=== PATIENT | female | born 1935 | race Caucasian/White ===

== ENCOUNTER → 2017-04-19 | Outpatient (CLI) | payer MEDICARE | END | disposition home or self-care (01) | LOC: LAB.O 09:36 | PROVIDERS: ATTEND Nurse Practitioner Family | DX: R82.99 Other abnormal findings in urine (principal); R60.9 Edema, unspecified ==

== ENCOUNTER 2017-05-22 16:43 | Observation (INO) | payer MEDICARE ==
[2017-05-22] MEDS ORDERED: NITROGLYCERIN 0.4 MG 25 EA TAB SL ONE ×2 (17:15→17:17)
[2017-05-22] MEDS ORDERED: SODIUM CHLORIDE 0.9% (FLUSH) 10 ML SYG IV PRN ×2 (17:17→19:47)
[2017-05-22] MEDS ORDERED: ASPIRIN TABLET 325 MG TAB PO ONE (17:17)
--- NOTE | 2017-05-22 17:17 | ED.PDOC ---
History of Present Illness - General Chief Complaint: Respiratory Problem Stated Complaint: sob Time Seen by Provider: 05/22/17 17:16 Source: patient Exam Limitations: no limitations - History of Present Illness Initial Comments: Keyonna Velasquez 82 y/o female stated that she was sob today with chest pressure while sitting down at home.EMS was Then called and noted her blood pressure was elevated was given NTG and Morphine sulfate iv.Presently another NTG was given here in er and stating feeling much better Timing/Duration: 1-3 hours Severity: moderate Activities at Onset: rest Possible Cause: no prior episodes Improving Factors: nothing Worsening Factors: nothing Respiratory Risk Factors: no cause identified Allergies/Adverse Reactions: Allergies NO KNOWN ALLERGY Allergy (Verified 12/26/15 14:51) Home Medications: Ambulatory Orders Lisinopril 10 mg PO DAILY 05/22/17 Review of Systems - Review of Systems Constitutional: States: no symptoms reported EENTM: States: no symptoms reported Respiratory: States: see HPI Cardiology: States: see HPI Gastrointestinal/Abdominal: States: no symptoms reported Genitourinary: States: no symptoms reported Skin: States: no symptoms reported Past Medical History (General) - Patient Medical History Hx Congestive Heart Failure: Yes - recently diagnosed Hx Hypertension: Yes - Vaccination History Hx Tetanus, Diphtheria Vaccination: No - Social History Hx Alcohol Use: No Hx Substance Use: No Family Medical History - Family History Mother Family History: Unknown Living Status: Hx Family;Other: parents natural causes -old age Physical Exam - Physical Exam General Appearance: Alert, Comfortable, No apparent distress Eyes, Ears, Nose, Throat Exam: PERRL/EOMI, normal ENT inspection Neck: non-tender, full range of motion Respiratory: chest non-tender, crackles - bases Cardiovascular/Chest: normal peripheral pulses, regular rate, rhythm, other - grade 3/6 systolic murmur apex Peripheral Pulses: radial,right: 1+, radial,left: 1+ Gastrointestinal/Abdominal: normal bowel sounds, non tender, soft, no organomegaly Extremity: normal range of motion, no calf tenderness, pedal edema - bilaterally Neurologic: no motor/sensory deficits, alert, normal mood/affect, oriented x 3 Skin Exam: normal color, warm/dry Lymphatic: no adenopathy Progress - Progress Progress: 05/22/17 18:00 Vital Signs - 8 hr 05/22/17 16:44 Temperature 98.5 F Pulse Rate [ 85 RIGHT BRACHIAL] Respiratory 18 Rate Blood Pressure 168/129 [RIGHT BRACHIAL ] O2 Sat by Pulse 96 Oximetry - Results/Orders Results/Orders: 05/22/17 17:17 IV Care:Saline Lock per Protoc QSHIFT Telemetry .ONCE Sodium Chloride 0.9% (Flush) [Saline Flush Syringe] 10 ml IV PRN PRN EKG Stat Pulse Ox Stat 05/22/17 17:18 Pulse Oximetry Assessment DAILY Laboratory Results - last 24 hr 05/22/17 05/22/17 17:41 17:41 WBC 6.6 RBC 3.30 L Hgb 9.4 L Hct 28.7 L MCV 87.0 MCH 28.4 MCHC 32.7 L RDW 14.5 Plt Count 318 MPV 8.8 Absolute Neuts (auto) 4.40 Absolute Lymphs (auto) 1.40 Absolute Monos (auto) 0.50 Absolute Eos (auto) 0.20 Absolute Basos (auto) 0.10 Neutrophils % 66.6 Lymphocytes % 21.6 Monocytes % 7.8 Eosinophils % 2.7 Basophils % 1.3 PT 12.6 H INR 1.120 PTT (SP) 49.5 H Sodium 144 Potassium 3.7 Chloride 107 Carbon Dioxide 27 Anion Gap 13.7 BUN 42 H Creatinine 1.34 H BUN/Creatinine Ratio 31.3 H Random Glucose 99 Serum Osmolality 297.3 H Calcium 9.0 Magnesium 1.8 Total Bilirubin 0.6 Direct Bilirubin < 0.1 Indirect Bilirubin 0.5 AST 21 ALT 12 Alkaline Phosphatase 95 Creatine Kinase 49 CK-MB (CK-2) 1.2 CK-MB (CK-2) % Not Reportable Troponin I 0.02 B-Natriuretic Peptide 278.0 H* Serum Total Protein 6.9 Albumin 3.6 TSH 4.25 - EKG/XRAY/CT EKG: LVH, no ST T wave changes Comments: Heart rate-80 XRAY: chest - no cardio pulmonary abnormalities Departure - Departure Clinical Impression: Uncontrolled hypertension, CKD (chronic kidney disease) stage 3, GFR 30-59 ml/ min, Valvular heart disease Time of Disposition: 19:39 Disposition: Admit Patient Condition: Fair Departure Forms: Patient Portal Self Enrollment Referrals: Lainey Calvert NP [Primary Care Provider] - 1-2 Weeks Home Medications: Ambulatory Orders Lisinopril 10 mg PO DAILY 05/22/17 Decision To Admit - Decistion To Admit Decision to Admit Reason: Admit from ER Decision to Admit Date: 05/22/17 Decision to Admit Time: 19:37 - D/W CORTES Jordan/Hospitalist
--- NOTE | 2017-05-22 17:35 | RAD ---
EXAM: Chest,1 View CLINICAL INDICATION: 82-year-old female with pain. TECHNIQUE: Single view, AP portable chest was obtained. COMPARISON: 02/26/2012. FINDINGS: Stable prominent cardiac and mediastinal silhouette. Heart size is top normal. Tortuous atherosclerotic thoracic aorta. Lungs are clear without focal opacity, pneumothorax or pleural effusions. The visualized bones reveal degenerative change. IMPRESSION: No acute cardiopulmonary abnormalities. Electronically signed by: Elicia Schreiber MD 05/22/2017 5:34 PM CDT Workstation: [id number]
[2017-05-22] MEDS ORDERED: NITROGLYCERIN 0.4 MG/HR PATCH TOP ONE (18:35)
[2017-05-22] MEDS ORDERED: BUMETANIDE 0.25 MG/ML VIAL IV ONE (18:39)
[2017-05-22] MEDS ORDERED: amLODIPine BESYLATE 5 MG TAB PO ONE (18:40)
[2017-05-22] MEDS ORDERED: LABETALOL INJ 5 MG/ML VIAL IV ONE (18:48)
[2017-05-22] MEDS ORDERED: MORPHINE SULFATE INJ 10 MG/ML VIAL IV PRN (19:47)
[2017-05-22] MEDS ORDERED: NITROGLYCERIN 0.4 MG 25 EA TAB SL PRN (19:47)
[2017-05-22] MEDS ORDERED: ACETAMINOPHEN 325 MG TAB PO PRN (19:47)
--- NOTE | 2017-05-22 19:59 | HP ---
SUPERVISING PHYSICIAN: Antonio Coombs MD CHIEF COMPLAINT: Shortness of breath. HISTORY OF PRESENT ILLNESS: Ms. Velasquez is an 82-year-old female patient that was brought to the Emergency Department today via EMS secondary to developing shortness of breath and some chest pressure. EMS noted the patient had an elevated blood pressure on arrival and was given nitro and morphine. The patient noted with nitroglycerin she was feeling much better and not experiencing any shortness of breath. The patient is seen at [facility] and had recently been diagnosed with congestive heart failure without any current echocardiogram available for review. She also notes she has been having some bilateral ankle swelling. In the Emergency Department on arrival, initial blood pressure was 168/129. Saturation 96% on room, heart rate 85. She was given nitroglycerin, aspirin, Norvasc, labetalol 20 mg and Bumex 1 mg in the Emergency Department along with 0.4 mg nitroglycerin patch. After treatment, her vital signs showed improvement in her blood pressure with blood pressure 174/84. Laboratory studies showed normal white count and hyperchromic/normocytic anemia with hemoglobin 9.4 and hematocrit 20.7 with platelet count within normal limits at 318 as well as differential without a left shift. Coagulation studies showed she had an elevated PT of 12.6 and PT-T 49.5. Chemistries showed normal electrolytes, BUN elevated at 42, creatinine 1.34. Serum osmolality 297. Initial cardiac enzymes were all within normal limits. Initial cardiac enzymes showed troponin 0.02 with BNP slightly elevated at 278. After the patient's blood pressure stabilized, Dr. Michaud requested the patient be placed in observation for further cardiac telemetry to rule out underlying acute ischemic event and to further control blood pressure with medication management as needed. EKG in the Emergency Department showed no acute ST changes with left ventricular hypertrophy. The patient is now to be placed in observation for further treatment of uncontrolled hypertension and to further rule out acute myocardial infarction. PAST MEDICAL HISTORY: 1. Hypertension. 2. Chronic vertigo. 3. 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 4. Dementia. 5. Chronic kidney disease, followed by Dr. Sim in [place]. 6. History of left distal radius fracture. PAST SURGICAL HISTORY: 1. Hysterectomy. 2. Right knee replacement. 3. Bilateral cataracts. HOME MEDICATIONS: 1. Lisinopril 10 mg daily. 2. Aricept 5 mg daily. ALLERGIES: NO KNOWN DRUG ALLERGIES. FAMILY HISTORY: Noncontributory. 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 She lives in [place], [place], with her who has advancing dementia. She has never smoked, nor drank alcohol. REVIEW OF SYSTEMS: CONSTITUTIONAL: Denies any fevers, chills, or unintentional weight gain or loss. HEENT: She has had some bilateral itchy eyes with drainage. No noted nasal congestion, sore throats, earaches, or headaches. RESPIRATORY: As noted in history of present illness, shortness of breath with new diagnosis of congestive heart failure. CARDIOVASCULAR: As noted in history of present illness, new diagnosis of congestive heart failure with bilateral extremity edema. GASTROINTESTINAL: Denies nausea or vomiting. No diarrhea or constipation. GENITOURINARY: She has some increased frequency, but no dysuria or hematuria. NEUROLOGIC: Denies syncopal or presyncopal episodes, but notes she does have chronic vertigo, but denies any dizziness at time of admission or prior to admission. Denies any neurologic or sensory deficits. She does feel that she has been more confused in recent months. PHYSICAL EXAMINATION: VITAL SIGNS: Initial blood pressure in the Emergency Room was 168/129 with respirations 18, saturation 96% on room air, heart rate 85. After treatment with labetalol, nitroglycerin, Norvasc, the patient had improvement in her blood pressure and on admission to the Medical/Surgical Floor, blood pressure was 188/82 with heart rate 63. She was afebrile with 98.1 temperature. O2 saturation 94% on room air at rest. Admission weight 50.3 kg. GENERAL: The patient is unkept, appears somewhat dehydrated and frail, but in no acute distress. HEENT: Tympanic membranes clear bilaterally. Oropharynx is pink, mucous membranes dry and cracked. No lesions. NECK: Nontender, supple, full range of motion with no jugular venous distention noted. CHEST: Lungs clear to auscultation, diminished towards the bases with no notable rhonchi, wheezes, or rales. CARDIOVASCULAR: Regular rate and rhythm with a systolic murmur, III/ with no gallops or rubs. ABDOMEN: Soft, nontender. Positive bowel sounds. EXTREMITIES: There is bilateral pedal edema, nonpitting, but no cyanosis, clubbing. NEUROLOGIC: Cranial nerves II-XII are grossly intact. Facial features are symmetrical. Extraocular movements are within normal limits. There is no nystagmus noted. No notable motor or sensory deficits. The patient was somewhat confused, but oriented to herself and family members. She thought she was in the hospital at [facility] and was unable to remember the current year. LABORATORY: CBC on admission showed white count 6.6, hemoglobin 9.4, hematocrit 20.7. RBC indices showed a normocytic/normochromic presentation with platelet count 318,000, differential within normal limits. Coagulation studies showed slightly elevated PT and PT-T with PT 12.6, PT-T 49.5. Chemistries showed normal electrolytes with potassium 3.7, BUN elevated at 42, creatinine 1.34 with glucose 99, serum osmolality 297. Liver function within normal limits. Magnesium normal at 1.8. Cardiac enzymes showed CK 49, initial troponin 0.02. BNP elevated at 278, TSH 4.25. Urinalysis on admission to the Medical/Surgical Floor showed small amount of blood, otherwise within normal limits. MICROBIOLOGY: RADIOLOGY: Chest x-ray in the Emergency Department, singe view, per radiologic interpretation showed no acute cardiopulmonary abnormalities noted. ASSESSMENT: 1. Uncontrolled hypertension, currently only on lisinopril. 2. Chest pains described as chest pressure, requiring further observation to rule out acute ischemic event with the patient having uncontrolled hypertension. 3. Acute on chronic congestive heart failure, likely systolic without a current echocardiogram for review with the patient showing bilateral pedal edema and increasing shortness of breath, especially with exertion. 4. Chronic vertigo. 5. History of rheumatic valve disease. 6. Dementia, on Aricept. 7. Normocytic/normochromic anemia, likely of chronic illness with the patient having history of chronic kidney disease and followed by Dr. Tatiana aSmuels in [place]. 8. Acute on chronic renal failure with some exacerbation from likely prerenal azotemia state with review of medical records showing baseline creatinine around 1.2, being followed by a leakage tester in [place], Dr. Samuels . 9. Moderate dehydration. 10. Bilateral acute conjunctivitis, likely bacterial. 11. Elevated coagulation studies with the patient showing a normal liver enzymes, possibly secondary to underlying dehydration. PLAN: The patient will be placed in observation tonight to further monitor on telemetry and closely monitor blood pressure in efforts to stabilize blood pressure. We will do cardiac enzymes q.6h. times 2 sets to further rule out any acute ischemic event as well as EKGs. We will plan to repeat laboratory studies in the morning. In an effort to improve renal function, we will start her on half normal saline with 20 of potassium at 80 an hour and recheck CMP in the morning. She will be on DVT prophylaxis with Lovenox, SCDs, and early ambulation per protocol. We will resume her home medications once they are updated and verified as well as add Coreg to her medication regimen and monitor closely. Anticipate length of stay to be one to two days with hopefully discharging later tomorrow once the patient is stabilized in regards to her blood pressure. Once discharged, she will need close clinical followup with her primary care provider at [facility], Lainey Calvert as well as Dr. Samuels in regards to close monitoring of her renal function. She will need further workup in regards to the anemia. We will plan to do studies tomorrow including iron, TIBC, ferritin, and retic count. She was given Bumex in the Emergency Department, however, the patient was more clinically dehydrated on admission especially in regard to renal function. Therefore, again, she will be on some IV fluids with close monitoring given the new diagnosis of congestive heart failure. Consideration for consultation with Dr. Jeffrey as the patient has apparently not been seen by cardiology since being recently diagnosed to further help manage the underlying congestive heart failure and uncontrolled hypertension. I will place a consultation with Dr. Jeffrey tomorrow and hopefully after which time the patient can be discharged to continue followup with [facility]. Until then, we will continue to monitor the patient closely and treat appropriately. #[id number] [facility]
[2017-05-22] MEDS ORDERED: IV SET AND CAP CHANGE INJ INJ SCH (20:00)
[2017-05-22] MEDS: SODIUM CHLORIDE 0.9% (FLUSH) 10 ML SYG IV SCH (21:10)
[2017-05-22] MEDS ORDERED: OLOPATADINE 0.1% OPHTH SOL 1 DROP BOTH_EYES SCH (22:00)
--- NOTE | 2017-05-22 22:01 | PCM.CORE ---
Physician DVT/VTE - Nurse DVT Assessment & Total Each Risk Factor Represents 3 Points: Age over 75 years, Medical PT with Hx of [place], CHF, Severe infection/sepsis DVT Assessment Score: 6 - 5 or more Very High Risk Treatments: Early Ambulation * Pharmacological: Enoxaparin 40mg SQ Daily
[2017-05-22] MEDS ORDERED: ENOXAPARIN SODIUM 30 MG/0.3 ML SYG SUBCU ONE (22:14)
[2017-05-22] MEDS ORDERED: NYSTATIN POWDER 15GM BTTL TOP ONE (22:15)
[2017-05-22] MEDS: KCL 20MEQ/0.45% NS 1,000 ML IVS PRN (22:18)
[2017-05-22] MEDS: NYSTATIN POWDER 15GM BTTL TOP SCH (22:22)
[2017-05-22] MEDS ORDERED: ENOXAPARIN SODIUM 40 MG/0.4 ML SYG SUBCU SCH (22:30)
[2017-05-22] MEDS ORDERED: ENOXAPARIN SODIUM 30 MG/0.3 ML SYG SUBCU SCH (22:30)
[2017-05-22] MEDS: ERYTHROMYCIN OPHTH OINT 1 APPLIC BOTH_EYES SCH (22:45)
[2017-05-23] MEDS: LISINOPRIL 10 MG TAB PO SCH (08:22)
[2017-05-23] MEDS: CARVEDILOL 3.125 MG TAB PO SCH ×2 (08:22→21:24)
[2017-05-23] MEDS: DONEPEZIL HCL 5 MG TAB PO SCH (08:22)
[2017-05-23] MEDS: ASPIRIN TABLET 325 MG TAB PO SCH (08:22)
[2017-05-23] MEDS: NYSTATIN POWDER 15GM BTTL TOP SCH ×4 (08:23→21:25)
[2017-05-23] MEDS: ERYTHROMYCIN OPHTH OINT 1 APPLIC BOTH_EYES SCH ×4 (08:23→21:24)
[2017-05-23] MEDS: SODIUM CHLORIDE 0.9% (FLUSH) 10 ML SYG IV SCH ×2 (08:23→21:25)
[2017-05-23] MEDS ORDERED: NYSTATIN POWDER 15GM BTTL TOP SCH (09:00)
[2017-05-23] MEDS: KCL 20MEQ/0.45% NS 1,000 ML IVS PRN (10:50)
--- NOTE | 2017-05-23 15:18 | PN ---
DATE: 05/23/17 SUBJECTIVE: This morning the patient was much more oriented. She was visiting with family. She has had no fever, has had good control of blood pressure through the night and no reported chest pain. She was seen this morning also by Dr. Jeffrey. OBJECTIVE: VITAL SIGNS: Temperature 97.6, pulse 68, blood pressure 151/77, respirations 16 , saturation 97% on nasal cannula at rest. CHEST: Lungs clear to auscultation. HEART: Regular rate and rhythm with systolic murmur noted. No gallops or rubs. ABDOMEN: Soft, non-tender, positive bowel sounds. EXTREMITIES: No edema. NEUROLOGIC: She is alert to her family and self but still unsure of location and year. LABORATORY: CBC today shows a white count of 6.0, hemoglobin has dropped to 8.8 , hematocrit as well to 26.8 with platelet count of 229,000. Differential remains within normal limits. Reticular count and absolute reticular count is pending. Coagulation studies repeated this morning continues to show an elevated PT of 13.1 with PTT elevated at 63.8. Fibrinogen within normal limits at 351. Chemistries today show normal electrolytes, potassium 4.1, BUN down to 39, creatinine down to 1.32. Glucose 92, calcium 8.7. Iron normal at 36, TIBC normal at 358 with iron saturation being low at 10 and ferritin low at 5.4. Liver function showed to be within normal limits. She had 3 sets of troponin all being within normal limits with last set being 0.02. CPK showed to be 35. Triglycerides 63, cholesterol elevated at 213 with LDL of 144, HDL 53. ASSESSMENT: 1. Uncontrolled hypertension requiring ongoing medication regimen and and management with addition of an yue inhibitor and beta amanda.. 2. Chest pains described as chest pressure with no further chest pain reported with no evidence of acute ischemic event with cardiac enzymes remaining within normal limits as well as EKG showing no acute changes. 3. Chronic congestive heart failure with mild diastolic component, unknown etiology, likely related to hypertension with echocardiogram showing a diastolic dysfunction with estimated ejection fraction of 55 to 60%. .. 4. Chronic vertigo. 5. History of rheumatic valve disease with echocardiogram shows ejection fraction of 55 to 60% and diastolic dysfunction. 6. Systolic murmur with current echocardiogram showing a diastolic dysfunction with estimated ejection fraction of 55 to 60%. . 7. Normocytic/normochromic anemia secondary to chronic illness with the patient having history of chronic kidney disease and currently followed by Dr. Samuels in [place]. Noted to have some slight decrease in hemoglobin after IV fluids ; stool occult bloods are pending. 8. Acute on chronic renal failure with some exacerbation from prerenal azotemia from dehydration showing improvement with IV fluids with patient being followed by a coping machine assembler in [place], Dr. Samuels . 9. Moderate dehydration improving with IV fluids. 10. Bilateral acute conjunctivitis, likely bacterial and improving with ophthalmic gentamicin administration. 11. Continued elevated coagulation studies to include elevated PT/PTT but normal fibrinogen, needing further monitoring with no evidence of any bleeding although patient is showing a slight drop in her hemoglobin and hematocrit with stool occult bloods pending. PLAN: The patient will continue on observation for close monitoring today for further medical management of her hypertension. I discontinued the Nitro patch. Will monitor response and if needed, add additional medications to include long-acting nitrate in addition to the Carvedilol and lisinopril. We will monitor hemoglobin and hematocrit in the morning along with stool occult bloods to further assess her anemia and to insure that she is not anemic and in need of a transfusion. Certainly, at discharge she will need close followup with Dr. Samuels in regards to her renal function and ongoing anemia which is likely related to her chronic kidney disease as well as to continue to followup in an outpatient setting with Dr. Jeffrey. Until discharge, we will continue to monitor and treat appropriately. #[id number] [facility]
[2017-05-23] MEDS ORDERED: ENOXAPARIN SODIUM 30 MG/0.3 ML SYG SUBCU ONE (19:24)
[2017-05-23] MEDS ORDERED: ENOXAPARIN SODIUM 30 MG/0.3 ML SYG SUBCU SCH (21:00)
[2017-05-24] MEDS: KCL 20MEQ/0.45% NS 1,000 ML IVS PRN (02:01)
[2017-05-24] MEDS ORDERED: CARVEDILOL 3.125 MG TAB ONE (09:48)
[2017-05-24] MEDS: ASPIRIN TABLET 325 MG TAB PO SCH (09:59)
[2017-05-24] MEDS: ERYTHROMYCIN OPHTH OINT 1 APPLIC BOTH_EYES SCH ×2 (09:59→13:46)
[2017-05-24] MEDS: LISINOPRIL 10 MG TAB PO SCH (09:59)
[2017-05-24] MEDS: DONEPEZIL HCL 5 MG TAB PO SCH (09:59)
[2017-05-24] MEDS: NYSTATIN POWDER 15GM BTTL TOP SCH ×2 (09:59→13:46)
[2017-05-24] MEDS: SODIUM CHLORIDE 0.9% (FLUSH) 10 ML SYG IV SCH (10:00)
[2017-05-24] MEDS ORDERED: CARVEDILOL 3.125 MG TAB PO SCH (10:00)
[2017-05-24] MEDS: CARVEDILOL 3.125 MG TAB PO SCH (10:38)
[2017-05-24 13:52] VITALS: BP 176/96; TEMP 98.3; O2SAT 97
--- NOTE | 2017-05-31 11:37 | DS ---
SUPERVISING PHYSICIAN: Antonio Coombs MD DISCHARGE DIAGNOSIS: 1. Uncontrolled hypertension requiring medication management and change in regimen with the addition of an yue inhibitor and beta amanda. 2. Chest pains described as chest pressure with no further chest pains and no evidence of acute ischemic event with cardiac enzymes within normal limits as well as EKG showing no acute changes. 3. Chronic congestive heart failure with mild diastolic component, unknown etiology, likely related to hypertension with echocardiogram showing a diastolic dysfunction with estimated ejection fraction of 55 to 60%. Date of echocardiogram was 04/2017. 4. Chronic vertigo. 5. History of rheumatic valve disease with echocardiogram showing ejection fraction of 55% to 60% with diastolic dysfunction. 6. Systolic murmur with current echocardiogram as noted above. 7. Normocytic/normochromic anemia secondary to chronic illness with the patient having history of chronic kidney disease and followed by Dr. Samuels in [place]. Noted to have some slight decrease in hemoglobin after IV fluids. 8. Acute on chronic renal failure with some exacerbation from prerenal azotemia from dehydration, showing improvement with IV fluids with patient being followed by research test engine evaluator in [place], Dr. Samuels . 9. Moderate dehydration improving with fluids. 10. Bilateral acute conjunctivitis, likely bacterial and improving with ophthalmic gentamicin administration. 11. Continued mildly elevated coagulation studies with a normal fibrinogen with no evidence of any bleeding with further workup in outpatient setting suggested. The patient has normal liver functions. HISTORY OF PRESENT ILLNESS: Ms. Velasquez is an 82-year-old female patient that presented to the Emergency Department today via EMS secondary to developing shortness of breath and some chest pressure. EMS noted the patient had an elevated blood pressure on arrival and was given nitro and morphine. The patient noted with nitroglycerin she was feeling much better and not experiencing any shortness of breath. The patient has been seen in the past at [facility] and had recently been diagnosed with congestive heart failure without any current echocardiogram available for review at time of admission. She also noted she was having some bilateral ankle swelling. In the Emergency Department on arrival, initial blood pressure was 168/129. Saturation 96% on room, heart rate 85. She was given nitroglycerin, aspirin, Norvasc, labetalol and Bumex as well as started on 0.4 mg nitroglycerin patch. After treatment in the Emergency Room, her vital signs showed improvement in her blood pressure with blood pressure 174/84. Laboratory studies showed white count within normal limits, but hyperchromic/normocytic anemia with hemoglobin 9.4 and hematocrit 20.7 with platelet count within normal limits at 318,000 as well as differential without a left shift. Coagulation studies showed she had a slightly elevated PT of 12.6 and PT-T 49.5. Chemistries showed normal electrolytes, BUN elevated at 42, creatinine 1.34. Serum osmolality 297. Initial cardiac enzymes were all within normal limits with troponin 0.02 with BNP slightly elevated at 278. After the patient's blood pressure stabilized, Dr. Michaud, Emergency Room physician, requested the patient be placed in observation for further cardiac telemetry to rule out underlying acute ischemic event and to further control blood pressure with medication management as needed. EKG in the Emergency Department showed no acute ST changes with left ventricular hypertrophy. The patient was placed in observation for further treatment of uncontrolled hypertension and to further rule out acute myocardial infarction. She was in stable condition at time of admission. LABORATORY: Initial CBC showed white count 6.6. At discharge, it was 6.3. Hemoglobin and hematocrit initially were 9.4 and 28.7. After IV fluids, they dropped slightly to 8.8 and 26.8. On date of discharge, she had stabilized and hemoglobin was 9.2 and hematocrit 27.6. Platelet count were all within normal limits and at discharge was 306,000. Differential was within normal limits. Retic count was 0.8. Absolute retic count was 23,520. Coagulation studies did show an elevation of PT and PT-T with a maximum of 13.1 and PT-T 62.8 with fibrinogen within normal limits at 351. Chemistries on admission showed normal electrolytes. They remained within normal limits throughout admission. She did show an elevation of BUN at 42. At discharge, after fluids, it was down to 31. Creatinine was initially 1.34 and at discharge had normalized to 1.19. Magnesium was normal at 1.8. Calcium was normal at 8.7. Iron studies showed normal iron 36, TIBC 358, low iron saturation of 10, and a low ferritin of 5.4. Liver functions were all within normal limits as well as cardiac enzymes times 3 remained within normal limits with final being 0.02. BNP was slightly elevated at 278. Cholesterol was elevated at 213 with triglycerides 63, LDL 144 , HDL 53, TSH normal at 4.25. Urinalysis showed just a small amount of blood, otherwise within normal limits. RADIOLOGY: In the Emergency Room, she had a chest x-ray and per radiologic interpretation there were no acute cardiopulmonary noted. Echocardiogram was performed by Dr. Jeffrey, remote sensing specialist, which showed 55% to 65% ejection fraction with slight diastolic dysfunction. CONSULTATIONS: Rail Gang Supervisor, Dr. Jeffrey. Recommendations were for cautious diuretics with YUE inhibitor, beta amanda and, if needed, a long-acting nitroglycerin. HOSPITAL COURSE: Ms. Velasquez was discharged on 05/24/17 after there was no evidence of acute myocardial infarction on EKG or laboratory studies as well as she was seen in consultation prior to discharge with Dr. Jeffrey, cardiology. She had no recurrence of chest pains. Her blood pressure was controlled after admission. Again, as noted above in history of present illness, initial blood pressure was elevated. She did show some slight elevation prior to discharge, but with controlling blood pressure with medications, blood pressure was 182/81 , heart rate 77, saturation 97% on room air. She was without any chest pains. EKG showed no acute changes. The patient was started on gentamicin drops for her acute conjunctivitis and showed good improvement prior to discharge. It was felt the patient was stable enough to be discharged to continue with followup in the outpatient setting. PLAN: Ms. Velasquez was discharged to followup closely in clinical setting with primary care provider at [facility] as well as to have [facility]. She was scheduled to have followup on 05/30/17 at 12 PM. She was to resume home medications as instructed and to continue to use the eye medication with erythromycin for 4 more days until improved at which time she could stop. She was to return to the hospital or call [facility] should she have any concerning symptoms. DISCHARGE MEDICATIONS: 1. Coreg 6.25 mg twice daily, #60. 2. Erythromycin ophthalmic drops 1 in both eyes 4 times daily as needed for at lest 4 days. 3. Nystatin powder as needed. DIET AT DISCHARGE: Low cholesterol, low fat. ACTIVITY: Increase as tolerated. CONDITION AT DISCHARGE: Stable and improved. #[id number] [facility]
== END 2017-05-24 14:25 | disposition home health service (06) ==
LOC: ER 16:43 → MS 19:58
PROVIDERS: ADMIT Nurse Practitioner Family; ATTEND Nurse Practitioner Family
DX: R07.89 Other chest pain (principal); I13.0 Hypertensive heart and chronic kidney disease with heart failure and stage 1 through stage 4 chronic kidney disease, or unspecified chronic kidney disease; I50.33 Acute on chronic diastolic (congestive) heart failure; N18.3 Chronic kidney disease, stage 3 (moderate); N17.9 Acute kidney failure, unspecified; R42 Dizziness and giddiness; F03.90 Unspecified dementia, unspecified severity, without behavioral disturbance, psychotic disturbance, mood disturbance, and anxiety; D64.9 Anemia, unspecified; E86.0 Dehydration; H10.33 Unspecified acute conjunctivitis, bilateral; R79.1 Abnormal coagulation profile; Z79.899 Other long term (current) drug therapy; Z96.651 Presence of right artificial knee joint; Z90.710 Acquired absence of both cervix and uterus; Z98.42 Cataract extraction status, left eye; Z98.41 Cataract extraction status, right eye
CPT/HCPCS: 36415 ×5; 71010; 80048 ×2; 80053; 80061; 80076; 81001; 82550 ×3; 82553 ×3; 82728; 83540; 83550; 83880; 84443; 84484 ×3; 85025 ×3; 85045; 85384; 85610 ×2; 85730 ×2; 93005 ×2; 94762 ×2; 96361 ×2; 96372 ×2; 96374; 96375; 97116; 97162; 99284; G0378; G8978; G8979; G8980; J1650 ×2; J3480 ×3; J3490

== ENCOUNTER 2017-06-21 14:51 | Emergency (ER) | payer MEDICARE ==
[2017-06-21 15:03] VITALS: TEMP 98.3
[2017-06-21] MEDS: cloNIDine HCL 0.1 MG TAB PO ONE (16:27)
[2017-06-21] MEDS: ALPRAZolam 0.25 MG TAB PO ONE (16:27)
--- NOTE | 2017-06-21 18:04 | ED.PDOC ---
History of Present Illness - General Chief Complaint: Blood Pressure Problem Stated Complaint: high blood pressure Time Seen by Provider: 06/21/17 14:56 Source: patient Exam Limitations: no limitations - History of Present Illness Initial Comments: the patient is an 82-year-old female presenting to the emergency room secondary to uncontrolled hypertension. Systolic blood pressures have been up in the 200s for at least a couple of hours. Of course this is maybe patient anxious which is making the problem worse. No chest pain or shortness of breath. No palpitations. She was admitted a month ago for her uncontrolled hypertension. She is actually on fairly minimal medications for her blood pressures being as high as they have been even at home. She reports her normal systolic blood pressures range from 160-180. No headache. No neurological changes. Initial blood pressure here will SYSTOLIC and was in the 160s then it went back up to 200 when she got worked up Timing/Duration: unsure Severity: mild Improving Factors: nothing Worsening Factors: nothing Associated Symptoms: denies symptoms Allergies/Adverse Reactions: Allergies NO KNOWN ALLERGY Allergy (Verified 06/21/17 15:02) Home Medications: Ambulatory Orders Donepezil HCl [Aricept] 5 mg PO DAILY 05/22/17 Lisinopril 10 mg PO DAILY 05/22/17 Carvedilol [Coreg] 6.25 mg PO BID #60 tablet 05/24/17 Multiple Vitamin [Multi Vitamin] 1 tab PO DAILY 06/21/17 Vitamin E 100 unit PO DAILY 06/21/17 Review of Systems - Review of Systems Constitutional: States: no symptoms reported EENTM: States: no symptoms reported Respiratory: States: no symptoms reported Cardiology: States: no symptoms reported Gastrointestinal/Abdominal: States: no symptoms reported Genitourinary: States: no symptoms reported Musculoskeletal: States: no symptoms reported Skin: States: no symptoms reported Neurological: States: no symptoms reported, see HPI - mild dementia Past Medical History (General) - Patient Medical History Hx Seizures: No Hx Stroke: No Hx Asthma: No Hx of COPD: No Hx Congestive Heart Failure: Yes Hx Pacemaker: No Hx Hypertension: Yes Hx Diabetes: No Hx MRSA: No Surgical History: Hysterectomy, other - Vaccination History Hx Tetanus, Diphtheria Vaccination: No Hx Influenza Vaccination: No - Social History Hx Alcohol Use: No Hx Substance Use: No Hx Depression: No Hx Physical Abuse: No Hx Emotional Abuse: No - Female History Patient is a Female of Child Bearing Age (10 -59 yrs old): No Family Medical History - Family History Mother Family History: Unknown Living Status: Hx Family;Other: parents natural causes -old age Physical Exam - Physical Exam General Appearance: Alert, Comfortable, No apparent distress Eye Exam: bilateral normal Ears, Nose, Throat: normal ENT inspection, normal pharynx Neck: non-tender, full range of motion, supple Respiratory: chest non-tender, lungs clear, normal breath sounds, no respiratory distress, no accessory muscle use Cardiovascular/Chest: normal peripheral pulses, regular rate, rhythm, no edema Peripheral Pulses: radial,right: 2+, radial,left: 2+, dorsalis pedis,right: 2+, dorsalis pedis,left: 2+ Gastrointestinal/Abdominal: non tender, soft Rectal Exam: deferred Neurologic: deblocker II-XII nml as tested, alert, normal mood/affect, oriented x 3 Skin Exam: normal color Comments: Vital Signs - 24 hr 06/21/17 06/21/17 06/21/17 14:55 15:20 15:50 Temperature 98.3 F Pulse Rate [ 82 71 pulse ox] Respiratory 20 20 20 Rate Blood Pressure 168/112 157/100 194/99 [left arm] O2 Sat by Pulse 95 97 Oximetry 06/21/17 06/21/17 16:22 17:23 Temperature Pulse Rate [ 76 69 pulse ox] Respiratory 20 20 Rate Blood Pressure 206/107 166/88 [left arm] O2 Sat by Pulse 96 Oximetry Progress - Progress Progress: 06/21/17 18:03 the patient is a 82-year-old female presenting secondary to a hypertensive spike that is essentially asymptomatic. This is likely reactive to whatever she was doing at the time and then stress after the initial check. The patient's blood pressure is coming down probably more so with the anxiety medication than with the clonidine given. She does need to keep a record of her blood pressures. I would recommend that she use her 10 mg lisinopril to increase her dose to 20 mg daily. She needs to follow up with her primary care doctor next week. ER warnings were given. Departure - Departure Clinical Impression: Hypertension, uncontrolled Disposition: Discharge to Home or Self Care Condition: Fair Departure Forms: ED Discharge - Pt. Copy, Patient Portal Self Enrollment Instructions: DI for High Blood Pressure Diet: regular diet Activity: increase activity as tolerated Referrals: Ashley Sommers NP [Primary Care Provider] - 1-2 Weeks Home Medications: Ambulatory Orders Donepezil HCl [Aricept] 5 mg PO DAILY 05/22/17 Lisinopril 10 mg PO DAILY 05/22/17 Carvedilol [Coreg] 6.25 mg PO BID #60 tablet 05/24/17 Multiple Vitamin [Multi Vitamin] 1 tab PO DAILY 06/21/17 Vitamin E 100 unit PO DAILY 06/21/17 Additional Instructions: the patient is a 82-year-old female presenting secondary to a hypertensive spike that is essentially asymptomatic. This is likely reactive to whatever she was doing at the time and then stress after the initial check. The patient's blood pressure is coming down probably more so with the anxiety medication than with the clonidine given. She does need to keep a record of her blood pressures. I would recommend that she use her 10 mg lisinopril to increase her dose to 20 mg daily. She needs to follow up with her primary care doctor next week. ER warnings were given.
[2017-06-21 18:34] VITALS: BP 169/97; O2SAT 93
== END 2017-06-21 18:33 | disposition home or self-care (01) ==
LOC: ER 14:51
DX: I11.0 Hypertensive heart disease with heart failure (principal); I50.9 Heart failure, unspecified; Z79.899 Other long term (current) drug therapy

== ENCOUNTER → 2017-09-06 | Outpatient (CLI) | payer MEDICARE | LOC: BFHH 15:53 | PROVIDERS: ATTEND Nurse Practitioner Family | DX: N39.0 Urinary tract infection, site not specified (principal) ==

== ENCOUNTER 2018-06-02 12:01 | Inpatient (IN) | payer MEDICARE ==
[2018-06-02] MEDS ORDERED: CHLORHEXIDINE GLUCONATE 4 % 15 ML UD TOP ONE (12:16)
[2018-06-02] MEDS ORDERED: SULFA/TRIMETH 800/160 (DS) TAB 1 EA TAB PO ONE (12:21)
[2018-06-02] MEDS ORDERED: SODIUM CHLORIDE 0.9% 1000ML 1,000 ML IVS ONE ×2 (12:21→13:37)
[2018-06-02] MEDS ORDERED: SODIUM CHLORIDE 0.9% 1000ML 500 ML IVS ONE (12:30)
--- NOTE | 2018-06-02 12:49 | ED.PDOC ---
History of Present Illness - General Chief Complaint: Trauma Stated Complaint: fell out of bed Time Seen by Provider: 06/02/18 12:21 Source: EMS Exam Limitations: clinical condition, physical impairment, other - dementia - History of Present Illness Initial Comments: Reportedly was found on the floor of her [facility] at [facility] [place] by the staff. Unknown when last seen normal. Apparently has had a recent CVA & pneumonia. No other information is currently available regarding this incident. Occurred: this morning Severity: mild Pain Location: other - unable to determine Method of Injury: unknown Improving Factors: other - unknown Worsening Factors: other - unknown Loss of Consciousness: unsure Associated Symptoms (Fall): other - nonverbal Allergies/Adverse Reactions: Allergies NO KNOWN ALLERGY Allergy (Verified 06/21/17 15:02) Home Medications: Ambulatory Orders Albuterol Sulfate Nebs [Proventil Nebs] 2.5 mg NEB Q4H PRN vial 05/08/18 Ondansetron [Zofran Odt] 4 mg SL Q4H PRN #30 tab 05/08/18 Ascorbic Acid [Vitamin C] 500 mg PO DAILY 06/02/18 B-Complex Vitamins [Vitamin B Complex] 1 tab PO DAILY 06/02/18 Balsam [place] Oil [Venelex] 1 applic TOP DAILY 06/02/18 Collagenase [Santyl] 1 applic EX DAILY 06/02/18 Guaifenesin 400 mg PO Q4H PRN 06/02/18 Lactobacillus [Acidophilus Lactobacilli] 1 cap PO BID 06/02/18 Loperamide HCl [Imodium A-D] 2 mg PO TID PRN 06/02/18 Zinc Sulfate 220 mg PO DAILY 06/02/18 Review of Systems - Review of Systems Unable to Obtain Due To: condition, dementia, clinical condition - no other info available on arrival re: present illness; DNR Past Medical History (General) - Patient Medical History Hx Seizures: No Hx Stroke: Yes Hx Dementia: Yes Hx Asthma: No Hx of COPD: No Hx Cardiac Disorders: Yes - Rheumatic heart disease Hx Congestive Heart Failure: Yes Hx Pacemaker: No Hx Hypertension: Yes Hx Diabetes: No Hx Renal Disease: Yes Hx MRSA: No - Vaccination History Hx Tetanus, Diphtheria Vaccination: - unknown Hx Influenza Vaccination: No Hx Pneumococcal Vaccination: Yes - Refused - Social History Hx Tobacco Use: No Hx Alcohol Use: No Hx Substance Use: No Hx Depression: No Hx Physical Abuse: No Hx Emotional Abuse: No - Activities of Daily Living [facility] applicable[facility]:: [facility] - Female History Patient is a Female of Child Bearing Age (10 -59 yrs old): No Family Medical History - Family History Mother Family History: Unknown Living Status: Hx Family;Other: parents natural causes -old age Physical Exam - Physical Exam General Appearance: Comfortable, Emaciated, Frail, Lethargic, Ill Appearing Head Injury: lacerations - chin Eye Exam: bilateral normal ENT Exam: no dental injury Neck Exam: non-tender, normal inspection Cardiovascular/Respiratory: regular rate, rhythm, no M/R/G, normal breath sounds , no respiratory distress, JVD Gastrointestinal/Abdominal: non tender, soft, no organomegaly Back Exam: normal inspection, no CVA tenderness, no vertebral tenderness Extremity Exam: non-tender, no pedal edema, other - contusion to left knee Neurologic: alert, motor weakness, depressed affect, disoriented x 3, other - nonverbal Skin Exam: normal color, other - cool to touch - [place] Coma Score Best Eye Response (Lisa): (4) open spontaneously Best Verbal Response ([place]): (1) no verbal response Best Motor Response (Lisa): (4) withdraws to pain Lisa Total: 9 Progress - Progress Progress: 06/02/18 14:[address] abd results. 06/02/18 14:40 Have spoken with her [id number] who is an emergency contact. She verified the DNR & asks that she not be transferred or considered for any surgery. 06/02/18 14:53 Per family wishes we will admit her here with sepsis, provide abx & hydration but no procedures even if, for instance, her GB is actually infected. She is to remain DNR. 06/02/18 15:29 Much more alert but still non verbal. Improved. - Results/Orders Results/Orders: WBC 20 Bands 20 Na 157 Cr 3.11 Lactic acid 2.9 Tr 0.14 LE large Nitrite neg gross hematuria - EKG/XRAY/CT EKG: Sinus, no ST T wave changes, Abnormal Q waves Comments: rate 76; PACs; nml axis & intervals XRAY: pelvis - pelvis; left knee; CXR; T & L spine all with no acute findings CT Ordered: Yes - no acute findings brain & C-spine; distended gall bladder - Consult/PCP Consult/PCP: Shae Oswald Consult Reason/Comments: Admit here per family wishes Procedures - Laceration/Wound Repair Face Wound Length (cm): 1.5 Wound's Depth, Shape: linear, contused tissue Wound Explored: no foreign body removed Irrigated w/ Saline (cc's): 50 Betadine Prep?: No Wound Repaired With: dermabond Sterile Dressing Applied?: No Splint Applied?: No Sling Applied?: No Departure - Departure Clinical Impression: Facial laceration Qualifiers: Encounter type: initial encounter Qualified Code(s): S01.81XA - Laceration without foreign body of other part of head, initial encounter Sepsis Qualifiers: Sepsis type: sepsis due to unspecified organism Qualified Code(s): A41.9 - Sepsis, unspecified organism Knee contusion Qualifiers: Encounter type: initial encounter Laterality: left Qualified Code(s): S80.02XA - Contusion of left knee, initial encounter Urinary tract infection Qualifiers: Urinary tract infection type: site unspecified Hematuria presence: with hematuria Qualified Code(s): N39.0 - Urinary tract infection, site not specified Renal failure Qualifiers: Renal failure chronicity: acute on chronic Acute renal failure type: unspecified Chronic kidney disease stage: unspecified stage Qualified Code(s): N17.9 - Acute kidney failure, unspecified Altered mental status Qualifiers: Altered mental status type: disorientation Qualified Code(s): R41.0 - Disorientation, unspecified Time of Disposition: 14:58 Disposition: Admit Patient Condition: Serious Home Medications: Ambulatory Orders Albuterol Sulfate Nebs [Proventil Nebs] 2.5 mg NEB Q4H PRN vial 05/08/18 Ondansetron [Zofran Odt] 4 mg SL Q4H PRN #30 tab 05/08/18 Ascorbic Acid [Vitamin C] 500 mg PO DAILY 06/02/18 B-Complex Vitamins [Vitamin B Complex] 1 tab PO DAILY 06/02/18 Balsam [place] Oil [Venelex] 1 applic TOP DAILY 06/02/18 Collagenase [Santyl] 1 applic EX DAILY 06/02/18 Guaifenesin 400 mg PO Q4H PRN 06/02/18 Lactobacillus [Acidophilus Lactobacilli] 1 cap PO BID 06/02/18 Loperamide HCl [Imodium A-D] 2 mg PO TID PRN 06/02/18 Zinc Sulfate 220 mg PO DAILY 06/02/18 Critical Care Note - Critical Care Note Total Time (mins): 45 Comments: Antibiotics & IV fluids; consultation with family & hospitalist. Sepsis.
[2018-06-02] MEDS ORDERED: PIPERACILLIN/TAZOBACTAM 2.25 GM in SODIUM CHLORIDE 0.9% 50ML 50 ML IVPB ONE (13:42)
--- NOTE | 2018-06-02 13:46 | RAD ---
PROCEDURE: XR Thoracic Spine, 1 View CLINICAL INDICATION: The patient is 83 years old and is Female; fall TECHNIQUE: Lateral view of the thoracic spine. COMPARISON: No relevant prior studies available. FINDINGS: LIMITATIONS: The swimmer's view is nondiagnostic. VERTEBRAE: There is multilevel spondylosis and [id number] disc space narrowing throughout the thoracic spine. No acute fracture. Normal sagittal alignment. DISC SPACES: Diffuse degenerative changes of the thoracic spine are noted. SOFT TISSUES: Unremarkable. No radiopaque foreign body. No significant soft tissue swelling noted. VASCULATURE: The aortic knob is calcified. OTHER FINDINGS: Bone mineral density is decreased. IMPRESSION: No fracture or malalignment is identified in the thoracic spine. Electronically signed by: Gabino Beyer MD 06/02/2018 1:45 PM CDT
--- NOTE | 2018-06-02 13:47 | CT ---
Procedure: CT HEAD WITHOUT IV CONTRAST, CT CERVICAL SPINE WITHOUT IV CONTRAST Exam Date: 06/02/2018 12:22 PM CDT Ordering Provider: JULIAN CH Clinical Indication: head injury Comparison: None Technique: CT images of the head were obtained without contrast administration. Coronal and sagittal reformats were obtained. This exam was performed according to our departmental dose-optimization program which includes automated exposure control, adjustment of the mA and/or kV according to patient size and/or use of iterative reconstruction technique. Findings: There is no acute cortical infarction, hemorrhage, midline shift, mass effect, or hydrocephalus. There is global parenchymal volume loss. The calvaria and skull base are unremarkable. Paranasal sinuses and mastoid air cells are well aerated. Impression: No acute intracranial traumatic injury. Global parenchymal volume loss. Procedure: CT HEAD WITHOUT IV CONTRAST, CT CERVICAL SPINE WITHOUT IV CONTRAST Exam Date: 06/02/2018 12:22 PM CDT Ordering Provider: JULIAN CH Clinical Indication: head injury Comparison: None Technique: CT images of the cervical spine were obtained without intravenous contrast administration. Coronal and sagittal reformations were provided for further characterization. This exam was performed according to our departmental dose-optimization program which includes automated exposure control, adjustment of the mA and/or kV according to patient size and/or use of iterative reconstruction technique. Findings: Vertebral body heights are maintained. Slightly exaggerated cervical lordosis. The dens is intact. No evidence of fracture. No prevertebral soft tissue edema. Multilevel, multifactorial spondylosis is present without significant spinal canal stenosis. Multinodular appearance of the left thyroid lobe. This could be better assessed with nonemergent thyroid ultrasound. Impression: No CT evidence for acute cervical osseous injury. Multilevel cervical spondylosis. Electronically signed by: Iván Medina MD 06/02/2018 1:45 PM CDT
--- NOTE | 2018-06-02 13:50 | RAD ---
PROCEDURE: XR Left Knee, 2 views CLINICAL INDICATION: The patient is 83 years old and is Female; fall TECHNIQUE: Frontal and/lateral views of the left knee. COMPARISON: No relevant prior studies available. FINDINGS: BONES/JOINTS: There are two amorphous rounded calcifications projecting over the lateral joint space which could be intra-articular. They measure approximately 8 mm each. No fracture or dislocation identified in the LEFT knee. There is patella sj with patellar enthesophytes and osteophytes superiorly. No suprapatellar knee effusion. SOFT TISSUES: Unremarkable .No radiopaque foreign body. No significant soft tissue swelling noted. VASCULATURE: Vascular calcifications are noted. IMPRESSION: 1. There are two amorphous rounded calcifications projecting over the lateral joint space which could be intra-articular. They measure approximately 8 mm each. 2. No fracture or dislocation identified in the LEFT knee. 3. There is patella sj with patellar enthesophytes and osteophytes superiorly. Electronically signed by: Gabino Beyer MD 06/02/2018 1:48 PM CDT
--- NOTE | 2018-06-02 13:51 | RAD ---
PROCEDURE: XR Pelvis, 1 Views CLINICAL INDICATION: The patient is 83 years old and is Female; fall TECHNIQUE: Frontal view of the pelvis. COMPARISON: No relevant prior studies available. FINDINGS: BONES/JOINTS: There is NO fracture or dislocation the pelvis. The sacral neural arches are intact. The sacroiliac joints are unremarkable. Both femoral heads are well-seated in their respective acetabula. There are degenerative change sin the lower lumbar spine. Bone mineral density is mildly decreased. The pubic symphysis is intact. SOFT TISSUES: Unremarkable .No radiopaque foreign body. No significant soft tissue swelling noted. OTHER FINDINGS: The pelvic brim is smooth. IMPRESSION: No fracture or dislocation identified in the pelvis. Electronically signed by: Gabino Beyer MD 06/02/2018 1:50 PM CDT
--- NOTE | 2018-06-02 13:53 | RAD ---
PROCEDURE: XR Chest, 1 View CLINICAL INDICATION: The patient is 83 years old and is Female; fall TECHNIQUE: Frontal view of the chest. COMPARISON: Prior study from 05/08/2018 FINDINGS: LIMITATIONS: The patient is rotated, which can compromise assessment. LUNGS: The lungs are clear and free of focal consolidation. This is improved. Pulmonary vascularity is normal. PLEURAL SPACE: There is NO pneumothorax. There are no pleural effusions noted. HEART: The heart size is top normal. MEDIASTINUM: No mediastinal widening. The mediastinal contour is unremarkable. BONES/JOINTS: There are degenerative changes of the spine identified. No obvious rib fractures. There are degenerative changes of the shoulders. VASCULATURE: The aortic knob is calcified. TUBES, LINES AND DEVICES: There are electrocardiogram leads present. IMPRESSION: The lungs are clear and free of focal consolidation. Improved from the prior three weeks earlier. Electronically signed by: Gabino Beyer MD 06/02/2018 1:52 PM CDT
[2018-06-02] MEDS ORDERED: SODIUM CHLORIDE 0.9% 50ML 50 ML ONE (13:54)
[2018-06-02] MEDS ORDERED: PIPERACILLIN/TAZOBACTAM 2.25 GM VIAL IVPB ONE ×2 (13:54→22:23)
--- NOTE | 2018-06-02 14:04 | RAD ---
PROCEDURE: XR Lumbar Spine, 2 or 3 Views CLINICAL INDICATION: The patient is 83 years old and is Female; fall TECHNIQUE: AP, lateral, and coned down lumbosacral views of the lumbar spine were performed . COMPARISON: No relevant prior studies available. FINDINGS: There are five nonribbearing lumbar vertebral bodies. Vertebral body heights are preserved. There is disc space narrowing at L5-S1, advanced. There is normal alignment. Bone mineral density is markedly decreased. Atherosclerotic changes of the aorta are noted. IMPRESSION: No fracture or malalignment identified in the lumbar spine. Decreased bone mineral density. Electronically signed by: Gabino Beyer MD 06/02/2018 2:02 PM CDT
--- NOTE | 2018-06-02 14:26 | CT ---
EXAM DESCRIPTION: Abdoment/Pelvis w/o Contrast CLINICAL HISTORY: sepsis COMPARISON: None Available TECHNIQUE: CT of the abdomen and Pelvis was performed without IV contrast. This exam was performed according to our departmental dose-optimization program, which includes automated exposure control, adjustment of the mA and/or kV according to patient size and/or use of iterative reconstruction technique. FINDINGS: There is a 3 to 4 mm noncalcified nodule medially in the left lung base which requires no further follow-up. The lung bases are otherwise unremarkable. No pneumoperitoneum or adenopathy. Trace amount of free low-density fluid in the pelvis. There is an abnormal segment of stool and gas in the rectum with rectal wall thickening all concerning for sternal coloproctitis. There are a few rounded and elongated fluid-filled structures along both sides of the rectum probably representing small bowel loops. The bladder is collapsed with a Munoz catheter in place and not well evaluated on this exam. Small to moderate amount of stool and gas remaining portions of the colon without additional colonic wall thickening. No dilated small bowel loops. No calcifications in the abdominal aorta without aneurysm. The gallbladder is distended measuring up to 4.4 cm transverse diameter with a few small gallstones lying dependently in the gallbladder some with internal gas. Gas in the gallbladder wall is considered less likely. No pericholecystic inflammation or fluid. The liver, spleen and pancreas are unremarkable. Slightly thickened appearance of the right adrenal without definite right adrenal nodule. A 1.5 cm left adrenal nodule is suspected, including oblique resonance exam. Round low density lesions are noted in both kidneys measuring up to 8.7 cm diameter superior pole right kidney. The largest of these represent cysts. The smaller lesions are too small to characterize but also probably represent cysts. Degenerative changes in lumbar spine at multiple levels. 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 No additional colonic wall thickening or evidence of small bowel obstruction. Gallbladder distention with several small gallstones lying dependently in the gallbladder. Some of these likely contain internal gas, less likely gas in the gallbladder wall. Right upper quadrant ultrasound should be considered for further evaluation. No biliary duct dilation or evidence of pancreatitis. Bilateral renal cysts, but no additional abnormality in the abdomen or pelvis to explain sepsis. Electronically signed by: Shiva Lundy MD 06/02/2018 2:25 PM CDT
--- NOTE | 2018-06-02 15:07 | HP ---
SUPERVISING PHYSICIAN: Raj Rivas M.D. CHIEF COMPLAINT: Altered mental status. HISTORY OF PRESENT ILLNESS: This is an 83 year-old female patient [facility] She was found down by the staff on the floor. There was no witnessed trauma. She had a recent cerebrovascular accident in the recent past and she also had aspiration pneumonia approximately 1 month ago and was in the hospital for that. In the Emergency Room she was found to have a WBC of 20,200 with 26 bands. Lactic acid was 2.9. Sodium 152, potassium 4.8, chloride 117, BUN 77, creatinine 3.11. Her baseline creatinine is about 1.2. She had a urinary tract infection by her urinalysis with greater than 300 urine protein, large amount of urine blood, large urine leukocyte esterase, too numerous to count urine RBCs, obscured by RBCs is the urine WBCs and urine bacteria were obscured by RBCs. Head CT showed no acute intracranial traumatic injury. Chest x-ray showed the lungs are clear and free of focal consolidation, improved from prior study. Lumbar spine x-ray showed no fracture or malalignment of the lumbar spine. Cervical spine CT showed no CT evidence for acute cervical osseous injury. Left knee x-ray shows: 1) Two amorphous rounded calcifications projecting over the lateral joint space. 2) No fracture or dislocation identified. 3) There is patellar sj with patellar enthesophytes and osteophytes superiorly. Pelvic x-ray showed no fracture or dislocation identified in the pelvis. Thoracic spine x-ray showed no fracture or malalignment identified in the thoracic spine. 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 The gallbladder is distended with several small gallstones lying dependent in the gallbladder. Bilateral renal cysts but no additional abnormality in the abdomen or pelvis to explain sepsis. In the E. R., she received 3 liters of fluid as well as started on Zosyn prior to blood cultures and urine cultures. The patient has severe dementia and the family requests that the patient be a do not resuscitate. They would like to have aggressive antibiotic treatment and fluid resuscitation, but they want no surgical interventions or extreme life saving measures. I was called for hospital admission for urosepsis, altered mental status and acute renal failure. PAST MEDICAL HISTORY: Obtained from the chart as the patient is unable to answer questions. 1. Hypertension. 2. Chronic vertigo. 3. Rheumatic heart disease as a child. 4. Dementia. 5. Chronic kidney disease. 6. History of left distal radius fracture. PAST SURGICAL HISTORY: 1. Hysterectomy. 2. Bilateral knee replacement. 3. Bilateral cataracts. OUTPATIENT MEDICATIONS: Per the EMR and awaiting verification. ALLERGIES: NO KNOWN DRUG ALLERGIES. FAMILY HISTORY: Unknown at this time. 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 She previously lived in [facility]. She is . She has just recently been [facility] the [facility] about 1 month ago. She and her both have advanced dementia. There is no history of smoking, ETOH or illicit drug use. 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 REVIEW OF SYSTEMS: Unable to obtain due to the patient's mental status. PHYSICAL EXAMINATION: VITAL SIGNS: Temperature 96.3, heart rate 97, blood pressure 85/64, respiratory rate 22, O2 sat 97%. GENERAL: This is an 83 year-old cachectic female patient who is lying in her hospital bed. She looks severely ill. HEENT: Normocephalic. She does have an ecchymotic area to her chin from most likely a fall [facility] the [facility]. Oropharynx is clear. NECK: Supple without mass. RESPIRATORY: Essentially clear to auscultation bilaterally. It is diminished at the bases. CHEST: There is equal rise and fall of the chest with inspiration and expiration. CARDIOVASCULAR: Regular rate and rhythm. GASTROINTESTINAL: Abdomen is soft. It is nondistended. Bowel sounds are positive. EXTREMITIES: No cyanosis, clubbing or edema. There is a contusion to the left knee. Bilateral pedal pulses are palpable at +1. NEUROLOGIC: She is awake. She does not follow commands. She is nonverbal except for an occasional moan. SKIN: Cool to the touch. LABORATORY: Repeat lactic acid was 2.9. Repeat lactic acid after approximately 4 hours remained unchanged, it was 2.9. Hemoglobin 8.6, hematocrit 27.6. All other labs and films are per the History of Present Illness. ASSESSMENT: 1. Severe urosepsis with a temperature of 96.3, heart rate 97, respiratory rate 22, WBCs of greater than 20,000, bands 26, lactic acid initially and 4 hour repeat are both 2.9, blood pressure 86/54. 2. Acute on chronic renal failure. Creatinine is 3.11, baseline creatinine is approximately 1.2. 3. Severe electrolyte imbalance due to septic state. 4. Elevated troponin of 0.14 most likely secondary to acute renal failure. 5. Anemia, hypochromic/normocytic. 6. Altered mental status. 7. Severe dementia. 8. Hypertension. PLAN: We will admit the patient to the hospital. Will continue with judicious fluids. I have also continued her on the extended infusion Zosyn. I will check her labs again at 8:00 PM. She may need to have blood. I have also given her morphine for pain and Ativan for restlessness. SCDs have been ordered for DVT prophylaxis and Protonix for ulcer prophylaxis. The patient is a do not resuscitate, but we will aggressively treat her urosepsis. Will continue to monitor her closely and follow as needed. Dr. Rvias is the collaborating physician available for consultation. #[id number] [facility]
[2018-06-02] MEDS ORDERED: ASPIRIN TABLET 325 MG TAB PO ONE (15:28)
[2018-06-02] MEDS ORDERED: ASPIRIN SUPP 600 MG SUP PR ONE (15:34)
[2018-06-02] MEDS ORDERED: SODIUM CHLORIDE 0.9% (FLUSH) 10 ML SYG IV PRN (16:16)
[2018-06-02] MEDS: DEXTROSE 5% 1000ML 1,000 ML IVS PRN (17:26)
[2018-06-02] MEDS: PANTOPRAZOLE SODIUM IV 40 MG VIAL IV SCH (19:20)
[2018-06-02] MEDS ORDERED: LEVALBUTEROL NEBS 1.25 MG/3 ML VIAL INH SCH (20:00)
[2018-06-02] MEDS ORDERED: PIPERACILLIN/TAZOBACTAM 3.375 GM in SODIUM CHLORIDE 0.9% 100ML 100 ML IVPB SCH (22:00)
[2018-06-02] MEDS ORDERED: SODIUM CHL 0.9% 50ML MIN-BAG+ 50 ML IVPB ONE (22:24)
[2018-06-02] MEDS: IV SET AND CAP CHANGE INJ INJ SCH (22:25)
[2018-06-02] MEDS: PIPERACILLIN/TAZOBACTAM 2.25 GM in SODIUM CHLORIDE 0.9% 50ML 50 ML IVPB SCH (22:26)
[2018-06-03] MEDS: DEXTROSE 5% 1000ML 1,000 ML IVS PRN ×2 (03:31→13:59)
[2018-06-03] MEDS ORDERED: PIPERACILLIN/TAZOBACTAM 2.25 GM VIAL IVPB ONE ×2 (05:19→15:02)
[2018-06-03] MEDS ORDERED: SODIUM CHL 0.9% 50ML MIN-BAG+ 50 ML IVPB ONE (05:19)
[2018-06-03] MEDS: PIPERACILLIN/TAZOBACTAM 2.25 GM in SODIUM CHLORIDE 0.9% 50ML 50 ML IVPB SCH ×2 (05:57→15:04)
[2018-06-03] MEDS: LEVALBUTEROL NEBS 1.25 MG/3 ML VIAL NEB SCH ×3 (08:00→16:39)
[2018-06-03] MEDS ORDERED: SODIUM CHLORIDE 0.9% 50ML 50 ML ONE (15:03)
[2018-06-03] MEDS: PANTOPRAZOLE SODIUM IV 40 MG VIAL IV SCH (17:29)
[2018-06-03] MEDS ORDERED: LEVALBUTEROL NEBS 1.25 MG/3 ML VIAL NEB PRN (19:08)
--- NOTE | 2018-06-03 19:57 | PN ---
DATE: 06/03/18 SUPERVISING PHYSICIAN: Raj Rivas M.D. SUBJECTIVE: The patient is lying in bed. She is unresponsive. She does not withdraw to pain. Nursing reports a difficult time obtaining blood pressure and she is usually hypothermic. The patient has had no urine output. OBJECTIVE: VITAL SIGNS: Temperature 97.8, heart rate 72, blood pressure 67/43, respiratory rate 20, O2 sat 96% on 2 liters nasal cannula. RESPIRATORY: Diminished breath sounds throughout but otherwise clear to auscultation. CARDIAC: Regular rate and rhythm. NEUROLOGIC: She is unresponsive. She does not withdraw to pain. There is a very slight grimace on sternal rub. LABORATORY: WBCs last night were 17.9, hemoglobin 7.1, hematocrit 22.7, neutrophils remain at 26. Sodium 150, potassium 3.3, chloride 118, carbon dioxide 18, BUN 75, creatinine 3.07, magnesium 1.7, calcium 7.6. Preliminary blood cultures are negative to date. Urine cultures are pending. All other labs and films have been reviewed via the EMR. ASSESSMENT: 1. Severe urosepsis with a temperature of 96.3, heart rate 97, respiratory rate 22, WBCs of greater than 20,000, bands 26, lactic acid initially and 4 hour repeat are both 2.9, blood pressure 86/54 on admission. 2. Acute on chronic renal failure. Creatinine is 3.07, baseline creatinine is approximately 1.2. 3. Severe electrolyte imbalance due to septic state. 4. Elevated troponin of 0.14 most likely secondary to acute renal failure. 5. Anemia, hypochromic/normocytic. 6. Altered mental status. 7. Severe dementia. 8. Hypertension. PLAN: We will continue present supportive care. At this point we are making the patient comfortable as well as continuing her antibiotics and fluids. Her family has again stated that they want comfort measures only as well as antibiotics and no heroic measures. She is a DNR. Her prognosis is very poor. We will continue to monitor closely and follow as needed. Dr. Rivas is the collaborating physician available for consultation. #[id number] [facility]
[2018-06-03] MEDS: SODIUM CHLORIDE 0.9% (FLUSH) 10 ML SYG IV SCH (21:00)
--- NOTE | 2018-06-04 15:39 | PN ---
SUPERVISING PHYSICIAN: Antonio Coombs MD DATE: 06/04/18 SUBJECTIVE: The patient remains unresponsive with no withdrawal from pain. She is showing a significant decrease in her blood pressure as well as changes in her respirations and had no output in regards to her urine. The patient's family remains at bedside and the patient appears to be comfortable. OBJECTIVE: VITAL SIGNS: Temperature 98, pulse 80, blood pressure 63/29, respirations 26, saturation 98% on 2 liters nasal cannula. Output has been 30 cc in the last 24 hours. Weight 46.5 kg. GENERAL: The patient is unresponsive and obtundent. RESPIRATORY: Breath sounds are decreased throughout. HEART regular rate and rhythm. NEUROLOGICAL: She is unresponsive with no pain response. No grimace to sternal rubs at this point. LABORATORY: None. RADIOLOGY: None. ASSESSMENT: 1. Severe urosepsis secondary to urinary tract infection with multiorgan dysfunction. 2. Acute on chronic renal failure. . 3. Severe electrolyte imbalance due to sepsis. 4. Elevated troponin most likely due to renal failure 5. Chronic anemia, hypochromic/normocytic. 6. History of severe dementia. 7. Hypertension, now hypotensive secondary to #1. PLAN: We will continue with care and comfort measures. She continues on fluids with antibiotics having been stopped in the past 24 hours. The patient' s condition is certainly grim with not unexpected in the next 24 hours. Will continue to monitor patient and assist family if needed. Until the patient 's expiration, we will continue to provide care and comfort measures. #[id number] [facility]
[2018-06-04] MEDS: PANTOPRAZOLE SODIUM IV 40 MG VIAL IV SCH (16:04)
[2018-06-04] MEDS: SODIUM CHLORIDE 0.9% (FLUSH) 10 ML SYG IV SCH ×2 (16:06→21:08)
[2018-06-04] MEDS: MORPHINE SULFATE INJ 10 MG/ML VIAL IV PRN (18:12)
[2018-06-05] MEDS: SODIUM CHLORIDE 0.9% (FLUSH) 10 ML SYG IV SCH ×2 (09:28→21:07)
[2018-06-05] MEDS: IV SET AND CAP CHANGE INJ INJ SCH (15:17)
--- NOTE | 2018-06-05 21:42 | PN ---
DATE: 06/05/18 SUPERVISING PHYSICIAN: Antonio Coombs M.D. SUBJECTIVE: Today, the patient is still unresponsive without any pain response. Her respirations significantly changed and have become quite shallow and more rapid at times. She has had no urine output in the last 24 hours. She does remain comfortable. The patient is accompanied by family at times. OBJECTIVE: VITAL SIGNS: Temperature 96.7, pulse 100. Blood pressure is unable to be obtained. Respirations 18 to 21, irregular and deep with nasal cannula at 2 liters. I's and O's show zero output for the last 24 hours. Weight is 45.4 kg. GENERAL: The patient is unresponsive and obtundent. RESPIRATORY: Breath sounds are decreased throughout. HEART regular rate and rhythm. NEUROLOGICAL: She is unresponsive with no pain response. No grimace to sternal rubs at this point. LABORATORY: No laboratory. No radiology. ASSESSMENT: 1. Severe urosepsis secondary to urinary tract infection with multiorgan dysfunction. 2. Acute on chronic renal failure. . 3. Severe electrolyte imbalance due to sepsis. 4. Elevated troponin most likely due to renal failure 5. Chronic anemia, hypochromic/normocytic. 6. History of severe dementia. 7. Hypertension, now hypotensive secondary to #1. PLAN: The patient remains on care and comfort measures. She is no longer on any fluids and is having no output, and is showing signs of deterioration with changes in respirations. Anticipate the patient's expiration within the next 24 hours or less. Will continue with providing assistance to the family and care and comfort measures to the patient as needed. Until then will continue to monitor and treat appropriately. #[id number] [facility]
[2018-06-06] MEDS: MORPHINE SULFATE INJ 10 MG/ML VIAL IV PRN (09:33)
[2018-06-06] MEDS: SODIUM CHLORIDE 0.9% (FLUSH) 10 ML SYG IV SCH (09:34)
[2018-06-06 12:28] VITALS: BP 85/57; TEMP 97.6; O2SAT 97
--- NOTE | 2018-06-06 13:32 | DS ---
SUPERVISING PHYSICIAN: Antonio Coombs MD DISCHARGE DIAGNOSIS: 1. Severe urosepsis secondary to urinary tract infection. She was on hospice previously and will be discharged to inpatient hospice. 2. Acute on chronic renal failure. 3. History of severe dementia. 4. Endstage congestive heart failure. HISTORY OF PRESENT ILLNESS: This is an 83-year-old female patient who has a history of severe dementia and heart failure. She has been on [facility] for the severe dementia and heart problems for several months. Approximately one month ago, she was brought to the Emergency Room and hospitalized for aspiration pneumonia. After treatment and on discharge, she was sent to the senior care. She has a significant history of recent cerebrovascular accidents as well as the aspiration pneumonia. She was at the senior care and was found on the floor in her room. She was brought to the Emergency Room and was found to have a WBC of 20,200 with 26 bands. Lactic acid was 2.9. Her electrolytes were out of balance with a sodium 152, potassium 4.8, chloride 117, BUN 77, creatinine 3.11. Her baseline creatinine is about 1.2. Her hospice was rescinded and she was placed in the hospital for severe urosepsis. HOSPITAL COURSE: The patient was treated initially with fluids and started on Zosyn. Her followup lactic acid was unchanged at 2.9. Over the course of the next several days, she had no urine output and she also had fairly significant diarrhea. Her vital signs deteriorated to the point that frequently they were unable to get blood pressures. When they did, most of her systolic blood pressures were in the 60s to 80s. She was frequently hypothermic with her temperature running in the 96.2 to 97 range. After several days of aggressive treatment for the urosepsis, the family felt they had given her an opportunity to improve and would like the patient to be discharged from the Acute Care setting and readmitted to inpatient hospice. DISCHARGE PLAN: The patient will be discharged from the Acute Care setting to inpatient hospice. [facility] will manage her hospice care. All of her home medications as well as her hospital medications were discontinued. As a hospice admission, she will have [facility] orders. The family is in agreement and wishes the patient to be comfortable. DISCHARGE MEDICATIONS: None. #[id number] [facility]
== END 2018-06-06 13:19 | disposition hospice, inpatient (51) | DRG 872 ==
LOC: ER 12:01 → MS 15:05
PROVIDERS: ADMIT Nurse Practitioner Acute Care; ATTEND Nurse Practitioner Acute Care
DX: A41.9 Sepsis, unspecified organism (principal); N39.0 Urinary tract infection, site not specified; N17.9 Acute kidney failure, unspecified; F03.90 Unspecified dementia, unspecified severity, without behavioral disturbance, psychotic disturbance, mood disturbance, and anxiety; K80.20 Calculus of gallbladder without cholecystitis without obstruction; S01.81XA Laceration without foreign body of other part of head, initial encounter; W19.XXXA Unspecified fall, initial encounter; I12.9 Hypertensive chronic kidney disease with stage 1 through stage 4 chronic kidney disease, or unspecified chronic kidney disease; N18.9 Chronic kidney disease, unspecified; R42 Dizziness and giddiness; R40.2422 Glasgow coma scale score 9-12, at arrival to emergency department; D50.9 Iron deficiency anemia, unspecified; R74.8 Abnormal levels of other serum enzymes; Z66 Do not resuscitate; Z51.5 Encounter for palliative care; Z96.653 Presence of artificial knee joint, bilateral; Z79.899 Other long term (current) drug therapy; Z86.73 Personal history of transient ischemic attack (TIA), and cerebral infarction without residual deficits; Y92.129 Unspecified place in nursing home as the place of occurrence of the external cause

== ENCOUNTER 2018-06-06 13:23 | Inpatient (IN) | payer OTHER ==
--- NOTE | 2018-06-06 13:24 | HP ---
SUPERVISING PHYSICIAN: Antonio Coombs MD HISTORY OF PRESENT ILLNESS: This is an 83-year-old female patient who has a history of severe dementia and heart failure. She has been on [facility] for severe dementia and heart problems for several months. Approximately one month ago, she was brought to the Emergency Room and hospitalized for aspiration pneumonia. After treatment and on discharge, [facility]. She has had a history of cerebrovascular accidents as well as pneumonia in the past at the [facility]. On the date of her Acute Care admission, she was found on the floor in her room. She was brought to the Emergency Room and was found to have WBC 20,200 and 25 bands. Her lactic acid was 2.9. Creatinine was 3.11. Her hospice status from previously was rescinded and she was admitted for urosepsis. She was treated with fluids and Zosyn. Her response was poor and her lactic acid was unchanged in spite of fluids. Her kidney function continued to deteriorate and due to her chronic medical conditions as well as her poor prognosis, the family decided to discontinue active care and to place her in hospice. She has just been discharged from Acute Care and is now being readmitted to the hospital for hospice per [facility] care. PAST MEDICAL HISTORY: 1. Hypertension. 2. Vertigo. 3. Rheumatic heart disease as a child. 4. Dementia. 5. Chronic kidney disease. 6. History of left distal radius fracture. PAST SURGICAL HISTORY: 1. Hysterectomy. 2. Bilateral knee replacement. 3. Bilateral cataracts. OUTPATIENT MEDICATIONS: None. ALLERGIES: NO KNOWN DRUG ALLERGIES. FAMILY HISTORY: Noncontributory. 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 She previously lived in [facility]. There is no history of smoking , ETOH or illicit drug use. REVIEW OF SYSTEMS: Unable to obtain due to the patient's mental status. PHYSICAL EXAMINATION: VITAL SIGNS: Afebrile. Heart rate 95. Blood pressure 85/56. Respiratory rate 22. O2 saturation 95%. GENERAL: This is an 83-year-old, thin female lying in her hospital bed. She is in moderate respiratory distress. HEENT: Normocephalic, atraumatic. Oropharynx is dry. NECK: Supple without mass. RESPIRATORY: Diminished breath sounds throughout. She is at times slightly tachycardic. CARDIOVASCULAR: Regular rate and rhythm. GASTROINTESTINAL: Abdomen is soft, nondistended. Bowel sounds are hypoactive. She does have a Munoz catheter in place. NEUROLOGIC: She is unresponsive. IMPRESSION: 1. Urosepsis. 2. Dementia. 3. Heart failure. PLAN: The patient will be admitted to hospice care under [facility]. Their routine orders and medications will be initiated. At this time, we will continue to make sure the patient is comfortable. Her family is aware of the situation and we will monitor her. #[id number] [facility]
[2018-06-06 13:50] VITALS: O2SAT 95
[2018-06-06] MEDS ORDERED: MORPHINE SULFATE INJ 10 MG/ML VIAL ONE (13:59)
[2018-06-06] MEDS: MORPHINE SULFATE INJ 10 MG/ML VIAL IV PRN (14:11)
[2018-06-06] MEDS ORDERED: SODIUM CHLORIDE 0.9% (FLUSH) 10 ML SYG IV PRN (14:47)
[2018-06-06] MEDS ORDERED: SCOPOLAMINE PATCH 1.5MG 1 EA TD SCH (15:00)
[2018-06-06] MEDS ORDERED: IV SET AND CAP CHANGE INJ INJ SCH (16:00)
[2018-06-07] MEDS: MORPHINE SULFATE INJ 10 MG/ML VIAL IV PRN (11:13)
[2018-06-07 11:35] VITALS: BP 58/30; TEMP 97.9
--- NOTE | 2018-06-07 14:50 | DS ---
SUPERVISING PHYSICIAN: Antonio Coombs MD DISCHARGE DIAGNOSIS: . HISTORY OF PRESENT ILLNESS: This is an 83-year-old female patient who has a history of severe dementia and heart failure. She had been on [facility] for severe dementia and heart problems for several months. Approximately one month ago, she was brought to the Emergency Room and hospitalized for aspiration pneumonia. After treatment and on discharge, [facility] She was on hospice care at that time. She also has a history of cerebrovascular accidents as well as pneumonia in the past. On the date of this Acute Care admission, she was [facility] She was brought to the Emergency Room and found to have a WBC of 20,200 and 25 bands. Her lactic acid was 2.9. Creatinine was 3.1. Her baseline creatinine is 1.2. Her hospice status was rescinded and she was admitted for urosepsis. Initially she was treated with fluids and Zosyn. Over the next 24 to 48 hours, her response was poor. Her lactic acid remained unchanged in spite of fluids and treatment. Her kidney function continued to deteriorate. She was unresponsive and due to her chronic medical conditions as well as her poor prognosis, the family decided to discontinue active care and to place her in hospice care. She was discharged from the Acute Care setting and was admitted to the hospital for hospice per [facility] care. HOSPITAL COURSE: The patient had care and comfort over the next 24 hours and the patient at 1410 on 06/07/18. DISCHARGE PLAN: The patient is discharged due to . Appropriate paperwork was handled. Hospice care completed the certificate and it will be sent to her physician. The family was notified and the body was sent to the home of choice as per family's instructions. DISCHARGE MEDICATIONS: None. #[id number] [facility]
== END 2018-06-07 15:01 | disposition expired | DRG 872 ==
LOC: MS 13:23
PROVIDERS: ADMIT Nurse Practitioner Acute Care; ATTEND Nurse Practitioner Acute Care
DX: A41.9 Sepsis, unspecified organism (principal); N39.0 Urinary tract infection, site not specified; Z66 Do not resuscitate; Z51.5 Encounter for palliative care; F03.90 Unspecified dementia, unspecified severity, without behavioral disturbance, psychotic disturbance, mood disturbance, and anxiety; I12.9 Hypertensive chronic kidney disease with stage 1 through stage 4 chronic kidney disease, or unspecified chronic kidney disease; N18.9 Chronic kidney disease, unspecified; Z96.653 Presence of artificial knee joint, bilateral